=== PATIENT | female | born 1995 | race Caucasian/White ===

== ENCOUNTER 2024-03-16 22:52 | Emergency (ER) | payer OTHER, SELFPAY ==
[2024-03-16 22:54] VITALS: BP 102/66
[2024-03-16] MEDS: ZOFRAN ODT (ORALLY DISINTEGRATING) 4 MG PO (23:00)
[2024-03-17 00:27] VITALS: BMI 26.2
[2024-03-17 00:39] VITALS: BP 106/76
[2024-03-17] MEDS: NSS 1000 IV (00:41)
[2024-03-17] MEDS: TORADOL 15 MG IV (00:42)
[2024-03-17 00:49] LABS: % Basophils 0.3 % (0-2); % Eosinophils 0.1 % (0-6); % Immature Granulocytes 1.7 % (0-0.5); % Lymphocytes 2.9 % (20.5-51.1); % Monocytes 3.8 % (1.7-9.3); % Neutrophils 91.2 % (42.2-75.2); Absolute Immature Granulocytes 0.2 10^3/uL (0-0.05); Absolute Lymphocytes 0.4 10^3/uL (1.2-3.4); Absolute Monocytes 0.5 10^3/uL (0.1-0.6); Hematocrit 40.7 % (37.0-47.0); Hemoglobin 14.8 g/dL (12.0-16.0); Mean Corp Hgb Conc. 36.4 g/dL (33.0-37.0); Mean Corpuscular Volume 87.9 fL (81.0-99.0); Mean Platelet Volume 10.1 fL (7.4-10.4); Nucleated Red Blood Cells % 0 %; Platelet Count 255 10^3/uL (130-400); Red Blood Cell Count 4.63 10^6/uL (4.20-5.40); Red Cell Dist. Width 11.8 % (11.5-14.5); White Blood Cell Count 14.2 10^3/uL (4.8-10.8)
[2024-03-17 00:59] LABS: HCG, Serum Qualitative Screen Negative
[2024-03-17 01:01] LABS: ALT (SGPT) 27 U/L (0-35); AST (SGOT) 29 U/L (14-36); Albumin 4.8 g/dl (3.5-5.0); Alkaline Phosphatase 72 U/L (38-126); Blood Urea Nitrogen 19 mg/dl (7-17); Calcium 9.6 mg/dl (8.4-10.2); Carbon Dioxide 20 mmol/L (22-30); Chloride 108 mmol/L (98-107); Estimated Creatinine Clearance 110 ml/min; Glucose 133 mg/dl (70-99); Magnesium 1.6 mg/dl (1.6-2.3); Potassium 4.2 mmol/L (3.5-5.1); Sodium 139 mmol/L (135-145); Total Bilirubin 1.5 mg/dl (0.2-1.3); Total Protein 7.3 g/dl (6.3-8.2); eGFR > 60.00
--- NOTE | 2024-03-17 01:04 | ED.GENMED ---
History of Present Illness
General
Chief Complaint: Abdominal Pain
Source: patient
Exam Limitations: none
Time Seen by Provider: 03/17/24 00:20
Nursing documentation reviewed up to this point in time: agreed with
History of Present Illness
History of Present Illness:
Patient presents to ED secondary to sudden onset of vomiting this evening, associated with lower abdominal cramping sensation. Denies diarrhea. There are multiple family members who recently has experienced diarrhea. Of note, patient is currently
on Augmentin day 8, secondary to UTI, which was diagnosed at urgent care center when she presented with burning sensation with urination. Patient has had similar symptoms in the past, and treated for UTI. Since taking antibiotics, however, patient
states that her urinary symptoms have resolved completely. Denies fever or chills. Denies loss of appetite. Of note, patient reports having traveled to [facility] for 3 weeks. Patient had returned for 2 weeks without any symptoms, when she was
started on antibiotics.
Past History
Past History
ED Past Medical History: Other (ADHD)
ED Past Surgical History: None
Patient has exhibited threatening behavior?: No
Social History
Tobacco: Non-smoker
Review of Systems
Review of Systems
Allergies reviewed?: Yes
All Other Systems: ROS reviewed and negative except as documented in HPI and ROS
Constitutional: Reports no symptoms; Denies fever or chills
ABD/GI: Reports abdominal pain, nausea and vomiting; Denies diarrhea
: Reports no symptoms; Denies dysuria, frequency or difficulty voiding
Musculoskeletal: Reports no symptoms
Skin: Reports no symptoms
Neurological: Reports no symptoms
Phy Exam
Physical Exam
Physical Exam:
Physical Exam
General: no apparent distress, not acutely ill. afebrile.
Head: nc/at. eomi
Neck: supple. normal range of motion
Abdomen: normal bowel sounds. not tender.
Neuro: alert and oriented. no focal neurological deficits
Skin: no rash
Psychiatric: well kept. interactive and cooperative
Extremities: no edema. no calf tenderness.
Course
Orders/Labs/Results
Orders:
Orders
03/16/24 22:57
Ondansetron Orally Disint [Zofran Odt (Orally Disintegrating)] 4 mg .ROUTE .STK-MED ONE
03/16/24 23:00
Ondansetron Orally Disint [Zofran Odt (Orally Disintegrating)] 4 mg PO NOW STA
03/17/24 00:27
Ketorolac [Toradol] 15 mg IV NOW STA
03/17/24 00:28
0.9% Sodium Chloride 1000 ml [Nss] 1,000 ml IV BOLUS
Test Result ONCE
03/17/24 00:34
Complete Blood Count/With Diff Urgent
Comprehensive Metabolic Panel Urgent
HCG, Serum Qualitative Screen Urgent
Magnesium Urgent
Abnormal Lab Results
03/17/24
00:34
WBC 14.2 H 10^3/uL
(4.8-10.8)
MCH 32.0 H pg
(27.0-31.0)
Abs Immat Gran (auto) 0.2 H 10^3/uL
(0-0.05)
Absolute Neuts (auto) 13.0 H 10^3/uL
(1.4-6.5)
Absolute Lymphs (auto) 0.4 L 10^3/uL
(1.2-3.4)
Immature Gran % 1.7 H %
(0-0.5)
Neutrophils % 91.2 H %
(42.2-75.2)
Lymphocytes % 2.9 L %
(20.5-51.1)
Chloride 108 H mmol/L
(98-107)
Carbon Dioxide 20 L mmol/L
(22-30)
BUN 19 H mg/dl
(7-17)
Glucose 133 H mg/dl
(70-99)
Total Bilirubin 1.5 H mg/dl
(0.2-1.3)
03/17/24 00:34
03/17/24 00:34
Vital Signs
Initial and Last Documented VS:
Initial Vital Signs
Temp Pulse Resp BP Pulse Ox
98 F 90 28 102/66 100
03/16/24 22:54 03/16/24 22:54 03/16/24 22:54 03/16/24 22:54 03/16/24 22:54
Last Documented Vital Signs
Temp Pulse Resp BP Pulse Ox
98 F 87 16 96/63 98
03/16/24 22:54 03/17/24 01:46 03/17/24 01:46 03/17/24 01:46 03/17/24 01:46
MDM/Problems Addressed
MDM/Problems Addressed:
Patient with complete resolution of symptoms after treatment. Repeat abdominal exam: Soft and nontender. Patient otherwise remains afebrile, hemodynamically stable, and nontoxic-appearing. History and exam consistent with likely multiple episodes
of vomiting secondary to prolonged course of antibiotic use versus viral illness, which multiple family members are experiencing recently. Patient will be discharged in stable condition, to the care of of her mother, with recommendation to continue
hydration at home along with PCP follow-up as an outpatient.
*Critical Care Note
Total Time (30-74mins, 75-104mins- exclusive of procedures): Not Applicable
ED Attending Note
-
Portions of this chart may have been created with voice recognition software.� Occasional wrong word or��sound alike� substitutions may have occurred due to the inherent limitations of voice recognition software.
Discharge Plan
Departure
Patient Disposition: Home (Routine Discharge)
Date of Disposition: 03/17/24
Time of Disposition: 01:51
Patient with high blood pressure during this ER visit?: No
Discharge Problem:
Nausea and vomiting
Instructions: Nausea and Vomiting, Adult (DC)
Prescriptions:
New
ondansetron 4 mg Tablet,Disintegrating
4 mg PO TIDPRN PRN (Reason: nausea/vomiting) Qty: 12 0RF
No Action
dextroamphetamine-amphetamine 15 MG tablet
20 mg PO DAILY
Multivit with Iron-Minerals
1 tab PO DAILY
Spironolactone
75 mg PO BID
Referrals:
Suma Del Rosario MD [Family Provider] -
Stand Alone Forms: Return to Work
Activity Restrictions/Additional Instructions:
As discussed, please follow-up with your primary care physician with any further concerns. Please discontinue taking antibiotics. Your prescription has been sent electronically to [facility] pharmacy in [place].
Interventions
Interventions:
*Risk Screen - Suicide Last Done: 03/16/24 22:54
*General Assessment Last Done: 03/17/24 00:27
*Neglect/Abuse Screening Last Done: 03/16/24 22:54
*Nursing Disposition Last Done: 03/17/24 01:57
TS-Ebrqee-Qemyzhzzeu Assessment Last Done: 03/17/24 00:33
Discharge Date and Time
Discharge Date/Time: 03/17/24 01:58
Print Language: LAO
[2024-03-17 01:46] VITALS: BP 96/63
== END 2024-03-17 01:58 | disposition home or self-care (01) ==
LOC: EMR 22:52
PROVIDERS: EMERGENCY PHYSICIAN Emergency Medicine; FAMILY PHYSICIAN Internal Medicine
DX: R11.2 Nausea with vomiting, unspecified (principal); R10.30 Lower abdominal pain, unspecified; F90.9 Attention-deficit hyperactivity disorder, unspecified type; Z87.440 Personal history of urinary (tract) infections
CPT/HCPCS: 99283; 96374; 96361; 80053; 83735; 84703; 85025